=== PATIENT | female | born 2000 ===

== ENCOUNTER 2022-02-22 06:14 | Day surgery (SDC) | payer OTHER | END 2022-02-22 12:25 | disposition home or self-care (01) | LOC: CIR.AMB 06:14 | PROVIDERS: ATTEND Orthopaedic Surgery Hand Surgery | DX: M71.331 Other bursal cyst, right wrist (principal); Z91.013 Allergy to seafood; Z20.822 Contact with and (suspected) exposure to COVID-19 ==